=== PATIENT | female | born 1955 | race Caucasian/White ===

== ENCOUNTER 2017-11-03 06:35 | Day surgery (SDC) | payer BC ==
[2017-11-01 14:59] LABS: BASOPHILS % (AUTO) 0.5 % (0.0-5.0); EOSINOPHILS % (AUTO) 2.6 % (0.0-8.0); HEMATOCRIT 39.1 % (36-48); LYMPHOCYTES % (AUTO) 13.2 % (21.0-51.0); MEAN CORPUSCULAR HEMOGLOBIN 31.2 pg (27.0-33.0); MEAN CORPUSCULAR HGB CONC 33.6 g/dL (32.0-36.0); MONOCYTES % (AUTO) 13.1 % (3.0-13.0); NEUTROPHILS % (AUTO) 70.6 % (40.0-77.0); PLATELET COUNT (AUTO) 191 K/uL (130-400); RED CELL DISTRIBUTION WIDTH 15.5 % (11.0-15.5); WHITE BLOOD COUNT (AUTO) 5.9 K/uL (4.8-10.8)
[2017-11-01 15:14] LABS: INR 1.3 (0.85-1.15); PARTIAL THROMBOPLASTIN TIME 35.4 SEC (26.3-35.5); PROTHROMBIN TIME 13.6 SEC (9.6-11.6)
[2017-11-01 15:36] VITALS: BP 128/79
[~2017-11-03] VITALS: Ht 167.6 cm; Wt 105.1 kg
[~2017-11-03 06:35] MED LIST: ATOR10TA69 PO; BENA10TA10 PO; BUPR150T8 PO; FERS325 PO; FURO20TA4 PO; METO-391 PO; RIVA15TA PO; SODIUM CHLORIDE 0.9% 500ML 500 ML IV SCH
[2017-11-03 06:40] VITALS: BP 142/78
[2017-11-03] MEDS ORDERED: SODIUM CHLORIDE 0.9% 1000ML 1,000 ML IV ONE (07:54)
[2017-11-03] MEDS ORDERED: MIDAZOLAM HCL 1 MG/ML 2ML VIAL ONE (09:04)
[2017-11-03] MEDS ORDERED: FENTANYL CITRATE PF 50 MCG/1 ML 2ML VIAL ONE (09:05)
[2017-11-03 13:00] VITALS: BP 103/62
[2017-11-03 13:30] VITALS: BP 101/68
[2017-11-03] MEDS ORDERED: METO-408 PO (13:55)
[2017-11-03 14:00] VITALS: BP 107/57
[2017-11-03 14:40] VITALS: BP 109/63
== END 2017-11-03 15:00 | disposition home or self-care (01) ==
LOC: DAH 06:35
PROVIDERS: ATTEND Internal Medicine Cardiovascular Disease
DX: I48.1 Persistent atrial fibrillation (principal); Z88.8 Allergy status to other drugs, medicaments and biological substances; F32.9 Major depressive disorder, single episode, unspecified; M10.9 Gout, unspecified; Z86.73 Personal history of transient ischemic attack (TIA), and cerebral infarction without residual deficits; D64.9 Anemia, unspecified; I12.9 Hypertensive chronic kidney disease with stage 1 through stage 4 chronic kidney disease, or unspecified chronic kidney disease; E11.22 Type 2 diabetes mellitus with diabetic chronic kidney disease; N18.3 Chronic kidney disease, stage 3 (moderate); Z82.49 Family history of ischemic heart disease and other diseases of the circulatory system; Z79.899 Other long term (current) drug therapy; I42.0 Dilated cardiomyopathy; Z79.01 Long term (current) use of anticoagulants; Z68.38 Body mass index [BMI] 38.0-38.9, adult
CPT/HCPCS: 36415; 80048; 85025; 85610; 85730; 92960; 93005 ×2; J2250; J3010; J7030; 99156; 99157

== ENCOUNTER → 2021-08-28 | Outpatient (CLI) | payer BC, MEDICARE ==
[~2021-08-28] MED LIST changes: -BENA10TA10 PO; +BENA10TA77 PO; -METO-391 PO; +METO-408 PO; -SODIUM CHLORIDE 0.9% 500ML 500 ML IV SCH
== END | disposition home or self-care (01) ==
LOC: SHCH 14:47
PROVIDERS: ATTEND Internal Medicine Cardiovascular Disease
DX: I87.2 Venous insufficiency (chronic) (peripheral) (principal)
CPT/HCPCS: 93970

== ENCOUNTER 2021-12-30 09:07 | Emergency (ER) | payer BC, MEDICARE ==
[~2021-12-30] VITALS: Ht 167.6 cm; Wt 104.3 kg
[~2021-12-30 09:07] MED LIST changes: +BUPR-113 PO; -BUPR150T8 PO
[2021-12-30 09:35] LABS: BASOPHILS % (AUTO) 0.1 % (0.0-5.0); EOSINOPHILS % (AUTO) 4.2 % (0.0-8.0); HEMATOCRIT 37.3 % (36-48); MEAN CORPUSCULAR HEMOGLOBIN 29.1 pg (27.0-33.0); MEAN CORPUSCULAR HGB CONC 31.9 g/dL (32.0-36.0); MEAN CORPUSCULAR VOLUME 91.2 fL (79-99); MONOCYTES % (AUTO) 10.9 % (3.0-13.0); NEUTROPHILS % (AUTO) 74.4 % (40.0-77.0); PLATELET COUNT (AUTO) 160 K/uL (130-400); RED BLOOD CELL COUNT(AUTO) 4.09 MIL/uL (4.00-5.50); RED CELL DISTRIBUTION WIDTH 14.3 % (11.0-15.5)
[2021-12-30 09:45] LABS: CREATININE 0.9 mg/dL (0.5-1.5); POTASSIUM 3.5 mmol/L (3.5-5.1)
[2021-12-30 09:54] LABS: ALBUMIN 3.7 g/dL (3.5-5.0); BILIRUBIN,TOTAL 0.8 mg/dL (0.2-1.0); TOTAL PROTEIN, SERUM 7.7 g/dL (6.0-8.3)
[2021-12-30 09:59] LABS: B-TYPE NATRIURETIC PEPTIDE 160 pg/mL (0-100)
[2021-12-30] MEDS ORDERED: FUROSEMIDE 20MG VIAL IV ONE (11:00)
[2021-12-30 11:52] VITALS: BP 145/83
== END 2021-12-30 11:53 | disposition home or self-care (01) ==
LOC: EDH 09:07
DX: I11.0 Hypertensive heart disease with heart failure (principal); I50.9 Heart failure, unspecified; I48.91 Unspecified atrial fibrillation; Z79.899 Other long term (current) drug therapy
CPT/HCPCS: 36415; 71045; 80053; 82550; 83874; 83880; 84484; 85025; 93005; 96374; 99284; J1940

== ENCOUNTER → 2022-01-28 | Outpatient (CLI) | payer BC, MEDICARE | END | disposition home or self-care (01) | LOC: SHCH 15:56 | PROVIDERS: ATTEND Internal Medicine Cardiovascular Disease | DX: I13.10 Hypertensive heart and chronic kidney disease without heart failure, with stage 1 through stage 4 chronic kidney disease, or unspecified chronic kidney disease (principal); N18.30 Chronic kidney disease, stage 3 unspecified; I48.0 Paroxysmal atrial fibrillation; I42.0 Dilated cardiomyopathy; M10.9 Gout, unspecified; E66.9 Obesity, unspecified; Z79.01 Long term (current) use of anticoagulants | CPT/HCPCS: 93306 ==

== ENCOUNTER 2023-08-10 12:00 | Emergency (ER) | payer BC, MEDICARE ==
[~2023-08-10] VITALS: Ht 167.6 cm; Wt 86.2 kg
[2023-08-10] MEDS ORDERED: OXYMETAZOLINE HCL SPRAY 15 ML BOTTLE EN SCH (16:00)
[2023-08-10 16:50] LABS: BASOPHILS # (AUTO) 0.02 K/uL (0.00-0.20); BASOPHILS % (AUTO) 0.2 % (0.0-5.0); EOSINOPHILS # (AUTO) 0.23 K/uL (0.00-0.70); EOSINOPHILS % (AUTO) 2.6 % (0.0-8.0); HEMATOCRIT 36.8 % (36-48); IMMATURE GRANULOCYTE ABSOLUTE 0.05 K/uL (0-1); LYMPHOCYTES # (AUTO) 0.9 K/uL (1.0-4.8); LYMPHOCYTES % (AUTO) 10.2 % (21.0-51.0); MEAN CORPUSCULAR HEMOGLOBIN 31.6 pg (27.0-33.0); MEAN CORPUSCULAR HGB CONC 32.3 g/dL (32.0-36.0); MEAN CORPUSCULAR VOLUME 97.6 fL (79-99); MONOCYTES # (AUTO) 0.8 K/uL (0.1-1.0); MONOCYTES % (AUTO) 9.5 % (3.0-13.0); NEUTROPHILS # (AUTO) 6.7 K/uL (1.8-7.7); NEUTROPHILS % (AUTO) 76.9 % (40.0-77.0); PLATELET COUNT (AUTO) 177 K/uL (130-400); RED BLOOD CELL COUNT(AUTO) 3.77 MIL/uL (4.00-5.50); RED CELL DISTRIBUTION WIDTH 13.6 % (11.0-15.5); WHITE BLOOD COUNT (AUTO) 8.8 K/uL (4.8-10.8)
[2023-08-10 17:15] LABS: INR 1.25 (0.85-1.15); PROTHROMBIN TIME 14.3 SEC (9.6-11.6)
[2023-08-10 17:16] LABS: PARTIAL THROMBOPLASTIN TIME 41.3 SEC (26.3-35.5)
[2023-08-10 17:21] LABS: CREATININE 1.1 mg/dL (0.5-1.5); POTASSIUM 3.7 mmol/L (3.5-5.1)
[2023-08-10 17:22] LABS: ALBUMIN 3.7 g/dL (3.5-5.0); BILIRUBIN,TOTAL 1.1 mg/dL (0.2-1.0); TOTAL PROTEIN, SERUM 8.1 g/dL (6.0-8.3)
[2023-08-10 21:08] VITALS: BP 132/72; PULSE 115; RESP 18; O2SAT 98
== END 2023-08-10 22:37 | disposition home or self-care (01) ==
LOC: EDH 12:00
DX: R04.0 Epistaxis (principal); I10 Essential (primary) hypertension; E78.00 Pure hypercholesterolemia, unspecified; F41.9 Anxiety disorder, unspecified; F32.A Depression, unspecified; I48.91 Unspecified atrial fibrillation; Z79.899 Other long term (current) drug therapy; Z98.890 Other specified postprocedural states; Z88.8 Allergy status to other drugs, medicaments and biological substances
CPT/HCPCS: 36415; 80053; 85025; 85610; 85730

== ENCOUNTER → 2024-11-29 | Outpatient (CLI) | payer MEDICARE ==
[2024-11-29 12:07] LABS: BASOPHILS # (AUTO) 0.02 K/uL (0.00-0.20); BASOPHILS % (AUTO) 0.3 % (0.0-5.0); EOSINOPHILS # (AUTO) 0.23 K/uL (0.00-0.70); HEMATOCRIT 33.5 % (36-48); IMMATURE GRANULOCYTE ABSOLUTE 0.02 K/uL (0-1); LYMPHOCYTES # (AUTO) 0.6 K/uL (1.0-4.8); LYMPHOCYTES % (AUTO) 7.9 % (21.0-51.0); MEAN CORPUSCULAR HEMOGLOBIN 28.9 pg (27.0-33.0); MEAN CORPUSCULAR VOLUME 93.1 fL (79-99); MONOCYTES # (AUTO) 0.8 K/uL (0.1-1.0); MONOCYTES % (AUTO) 9.8 % (3.0-13.0); NEUTROPHILS # (AUTO) 6.1 K/uL (1.8-7.7); NEUTROPHILS % (AUTO) 78.7 % (40.0-77.0); PLATELET COUNT (AUTO) 218 K/uL (130-400); RED CELL DISTRIBUTION WIDTH 16.7 % (11.0-15.5); WHITE BLOOD COUNT (AUTO) 7.7 K/uL (4.8-10.8)
[2024-11-29 12:31] LABS: B-TYPE NATRIURETIC PEPTIDE 207 pg/mL (0-100)
== END | disposition home or self-care (01) ==
LOC: LAB 10:49
PROVIDERS: ATTEND Internal Medicine Cardiovascular Disease
DX: I10 Essential (primary) hypertension (principal)
CPT/HCPCS: 36415; 83880; 85025